=== PATIENT | female | born 1965 | race African-American/Black ===

== ENCOUNTER 2024-11-20 15:13 | Inpatient (IN) | payer OTHER ==
[~2024-11-20] VITALS: Ht 167.6 cm; Wt 80.6 kg
[2024-11-20 16:24] LABS: BASOPHILS % (AUTO) 0.6 % (0.0-2.0); EOSINOPHILS % (AUTO) 1.8 % (1.0-6.0); HEMATOCRIT 37.9 % (36-46); HEMOGLOBIN 12.4 g/dL (12.0-16.0); LYMPHOCYTES # (AUTO) 1.6 K/uL (1.0-4.8); LYMPHOCYTES % (AUTO) 28.3 % (22.0-44.0); MEAN CORPUSCULAR HEMOGLOBIN 27.9 pg (26.0-34.0); MEAN CORPUSCULAR HGB CONC 32.8 G/dL (31.0-37.0); MEAN CORPUSCULAR VOLUME 85 fL (80-100); MONOCYTES # (AUTO) 0.5 K/uL (0.1-1.0); MONOCYTES % (AUTO) 9.2 % (2.0-9.0); NEUTROPHILS # (AUTO) 3.4 K/uL (1.8-7.7); NEUTROPHILS % (AUTO) 60.1 % (40.0-70.0); PLATELET COUNT (AUTO) 252 K/uL (150-450); RED BLOOD CELL COUNT(AUTO) 4.44 MIL/uL (4.00-5.20); RED CELL DISTRIBUTION WIDTH 14.7 % (11.5-14.5); WHITE BLOOD COUNT (AUTO) 5.6 K/uL (4.5-11.0)
[2024-11-20 16:27] LABS: ANION GAP 6 mmol/L (8-16); CALCIUM, TOTAL 9.5 mg/dL (8.8-10.5); CARBON DIOXIDE 30 mmol/L (22-29); CHLORIDE 102 mmol/L (98-107); CREATININE 1.98 mg/dL (0.60-1.30); GLOMERULAR FILTR. RATE CALC 26 mL/min (>60); GLUCOSE,RANDOM 94 mg/dL (70-110); POTASSIUM 4.2 mmol/L (3.5-5.1); SODIUM SERUM 138 mmol/L (136-145); UREA NITROGEN, BLOOD 34 mg/dL (7-18)
[2024-11-20 16:33] LABS: ALBUMIN 3.3 g/dL (3.4-5.0); BILIRUBIN,DIRECT 0.1 mg/dL (0.00-0.20); BILIRUBIN,TOTAL 0.3 mg/dL (0.1-1.0); TOTAL PROTEIN, SERUM 7.7 g/dL (6.4-8.2)
[2024-11-20 16:37] LABS: CREATINE KINASE, TOTAL ONLY 145 U/L (26-192); TROPONIN I-HIGH SENSITIVITY 10 ng/L (<51)
[2024-11-20 16:41] LABS: B-TYPE NATRIURETIC PEPTIDE 53 pg/mL (0-100)
[2024-11-20] MEDS: LORazepam 2 MG/ML VIAL IM ONE (17:39)
[2024-11-20] MEDS ORDERED: MORPHINE SULFATE 2 MG/ML SYRINGE IVP PRN (20:15)
[2024-11-20] MEDS ORDERED: ONDANSETRON HCL 4 MG/2 ML VIAL IVP PRN (20:15)
[2024-11-20] MEDS ORDERED: BISACODYL 10 MG RECTAL RECTAL SUPPOSITORY PR PRN (20:15)
[2024-11-20] MEDS: DOCUSATE SODIUM 100 MG CAPSULE PO SCH (21:00)
[2024-11-20] MEDS: ATORVASTATIN CALCIUM 10 MG TABLET PO SCH (21:00)
[2024-11-20 21:31] VITALS: BP 136/88; PULSE 68; RESP 21; TEMP 97.9; O2SAT 99
[2024-11-21] VITALS (7 sets, daily range): BP systolic 138–165; BP diastolic 81–113; PULSE 61–103; RESP 18–19; TEMP 97.8–98.6; O2SAT 96–99
[2024-11-21] MEDS: HEPARIN SODIUM,PORCINE 5,000 UNITS/ML VIAL SQ SCH
[2024-11-21 04:20] LABS: APPEARANCE,URINE CLEAR (CLEAR); BILIRUBIN,URINE NEGATIVE (NEGATIVE); COLOR,URINE COLORLESS (YELLOW); GLUCOSE, URINE (UA) NEGATIVE (NEGATIVE); KETONES,URINE NEGATIVE (NEGATIVE); LEUKOCYTE ESTERASE ,URINE NEGATIVE (NEGATIVE); NITRATE,URINE NEGATIVE (NEGATIVE); OCCULT BLOOD,URINE NEGATIVE (NEGATIVE); PH,URINE 6.5 (5.0-8.0); PROTEIN,URINE NEGATIVE (NEGATIVE); UROBILINOGEN,URINE <=1.0 mg/dL (<=1.0)
[2024-11-21] MEDS: HYDROCODONE/ACETAMINOPHEN 5-325 MG TABLET PO PRN (04:52)
[2024-11-21] MEDS: PANTOPRAZOLE SODIUM 40 MG DR TABLET PO SCH (09:05)
[2024-11-21] MEDS: ASPIRIN 81 MG CHEWABLE TABLET PO SCH (09:06)
[2024-11-21] MEDS ORDERED: LORazepam 1 MG TABLET PO PRN (10:30)
[2024-11-21] MEDS: ACETAMINOPHEN 325 MG TABLET PO PRN (12:11)
[2024-11-21] MEDS ORDERED: LORazepam 2 MG/ML VIAL IVP PRN (12:45)
[2024-11-21] MEDS: SODIUM CHLORIDE 0.45% 1,000 ML IV ONE (12:54)
[2024-11-21] MEDS: LORazepam 2 MG/ML VIAL IM PRN (14:55)
[2024-11-21] MEDS ORDERED: LORazepam 2 MG/ML VIAL IM PRN (18:45)
[2024-11-21 19:50] LABS: PH,URINE DRUG SCREEN 6.5 (5.0-8.0)
[2024-11-21 20:05] LABS: ALCOHOL, URINE DRUG SCREEN NEGATIVE (NEGATIVE); AMPHET/METH SCREEN,URINE NEGATIVE (NEGATIVE); BARBITURATE SCREEN, URINE NEGATIVE (NEGATIVE); BENZODIAZEPINES SCREEN,URINE NEGATIVE (NEGATIVE); CANNABINOID SCREEN,URINE NEGATIVE (NEGATIVE); COCAINE SCREEN,URINE NEGATIVE (NEGATIVE); METHADONE SCREEN, URINE NEGATIVE (NEGATIVE); OPIATE SCREEN,URINE POSITIVE (NEGATIVE); PHENCYCLIDINE SCREEN,URINE NEGATIVE (NEGATIVE)
[2024-11-22] VITALS (7 sets, daily range): BP systolic 155–167; BP diastolic 83–112; PULSE 54–89; RESP 18–19; TEMP 97.3–98.5; O2SAT 96–100
[2024-11-22] MEDS ORDERED: AMLO5TAB66 PO (02:08)
[2024-11-22] MEDS ORDERED: EMPA10TA3 PO (02:08)
[2024-11-22] MEDS ORDERED: CARV6.2534 PO (02:08)
[2024-11-22] MEDS ORDERED: [UNRECOGNIZED DRUG - OTHER] PO (02:08)
[2024-11-22] MEDS ORDERED: PANT40TA54 PO (02:08)
[2024-11-22 06:59] LABS: EOSINOPHILS % (AUTO) 2.2 % (1.0-6.0); HEMATOCRIT 40.9 % (36-46); HEMOGLOBIN 13.4 g/dL (12.0-16.0); LYMPHOCYTES # (AUTO) 2.1 K/uL (1.0-4.8); LYMPHOCYTES % (AUTO) 32.8 % (22.0-44.0); MEAN CORPUSCULAR HEMOGLOBIN 27.8 pg (26.0-34.0); MEAN CORPUSCULAR HGB CONC 32.8 G/dL (31.0-37.0); MEAN CORPUSCULAR VOLUME 85 fL (80-100); MONOCYTES # (AUTO) 0.7 K/uL (0.1-1.0); MONOCYTES % (AUTO) 10.3 % (2.0-9.0); NEUTROPHILS # (AUTO) 3.5 K/uL (1.8-7.7); NEUTROPHILS % (AUTO) 53.7 % (40.0-70.0); PLATELET COUNT (AUTO) 243 K/uL (150-450); RED BLOOD CELL COUNT(AUTO) 4.83 MIL/uL (4.00-5.20); RED CELL DISTRIBUTION WIDTH 14.7 % (11.5-14.5); WHITE BLOOD COUNT (AUTO) 6.5 K/uL (4.5-11.0)
[2024-11-22 07:01] LABS: CALCIUM, TOTAL 9.8 mg/dL (8.8-10.5); CREATININE 1.79 mg/dL (0.60-1.30); POTASSIUM 4.6 mmol/L (3.5-5.1)
[2024-11-22] MEDS: DULoxetine HCL 20 MG CAPSULE PO SCH (08:16)
[2024-11-22] MEDS: AmLODIPine BESYLATE 5 MG TABLET PO SCH (12:35)
[2024-11-23] VITALS (7 sets, daily range): BP systolic 139–162; BP diastolic 68–102; PULSE 67–82; RESP 18–19; TEMP 97.5–98; O2SAT 95–100
[2024-11-23 06:16] LABS: BASOPHILS % (AUTO) 0.7 % (0.0-2.0); HEMATOCRIT 41.8 % (36-46); HEMOGLOBIN 13.7 g/dL (12.0-16.0); LYMPHOCYTES # (AUTO) 1.9 K/uL (1.0-4.8); LYMPHOCYTES % (AUTO) 29.1 % (22.0-44.0); MEAN CORPUSCULAR HEMOGLOBIN 27.8 pg (26.0-34.0); MEAN CORPUSCULAR HGB CONC 32.8 G/dL (31.0-37.0); MEAN CORPUSCULAR VOLUME 85 fL (80-100); MONOCYTES # (AUTO) 0.6 K/uL (0.1-1.0); MONOCYTES % (AUTO) 9.3 % (2.0-9.0); NEUTROPHILS # (AUTO) 3.9 K/uL (1.8-7.7); NEUTROPHILS % (AUTO) 58.9 % (40.0-70.0); PLATELET COUNT (AUTO) 251 K/uL (150-450); RED BLOOD CELL COUNT(AUTO) 4.92 MIL/uL (4.00-5.20); RED CELL DISTRIBUTION WIDTH 14.8 % (11.5-14.5); WHITE BLOOD COUNT (AUTO) 6.7 K/uL (4.5-11.0)
[2024-11-23 06:26] LABS: CALCIUM, TOTAL 9.9 mg/dL (8.8-10.5); CREATININE 2.01 mg/dL (0.60-1.30); POTASSIUM 4.8 mmol/L (3.5-5.1)
[2024-11-23] MEDS: AmLODIPine BESYLATE 5 MG TABLET PO SCH (08:07)
[2024-11-23 12:26] LABS: GLUCOMETER DEV NAME(LOC) 5N.1D; GLUCOSE,POINT OF CARE 102 MG/DL (70-110)
[2024-11-23] MEDS: SODIUM CHLORIDE 0.9% 1,000 ML IV ONE (12:45)
[2024-11-24 05:18] VITALS: BP 147/108; PULSE 77; RESP 18; TEMP 98; O2SAT 95
[2024-11-24 07:42] VITALS: BP 148/80; PULSE 76; RESP 18; TEMP 97.7; O2SAT 95
[2024-11-24 07:46] LABS: BASOPHILS % (AUTO) 0.6 % (0.0-2.0); EOSINOPHILS % (AUTO) 2.3 % (1.0-6.0); HEMATOCRIT 39.6 % (36-46); HEMOGLOBIN 12.9 g/dL (12.0-16.0); LYMPHOCYTES # (AUTO) 1.6 K/uL (1.0-4.8); MEAN CORPUSCULAR HEMOGLOBIN 27.6 pg (26.0-34.0); MEAN CORPUSCULAR HGB CONC 32.7 G/dL (31.0-37.0); MEAN CORPUSCULAR VOLUME 85 fL (80-100); MONOCYTES # (AUTO) 0.5 K/uL (0.1-1.0); MONOCYTES % (AUTO) 8.8 % (2.0-9.0); NEUTROPHILS # (AUTO) 3.2 K/uL (1.8-7.7); NEUTROPHILS % (AUTO) 58.3 % (40.0-70.0); PLATELET COUNT (AUTO) 246 K/uL (150-450); RED BLOOD CELL COUNT(AUTO) 4.68 MIL/uL (4.00-5.20); RED CELL DISTRIBUTION WIDTH 14.8 % (11.5-14.5); WHITE BLOOD COUNT (AUTO) 5.4 K/uL (4.5-11.0)
[2024-11-24 07:59] LABS: CALCIUM, TOTAL 9.7 mg/dL (8.8-10.5); CREATININE 2.06 mg/dL (0.60-1.30); POTASSIUM 4.5 mmol/L (3.5-5.1)
[2024-11-24] MEDS: AmLODIPine BESYLATE 10 MG TABLET PO SCH (08:41)
[2024-11-24 16:04] VITALS: BP 143/93; PULSE 79; RESP 18; TEMP 98.1; O2SAT 96
[2024-11-24] MEDS: SODIUM CHLORIDE 0.9% 1,000 ML IV ONE (16:20)
[2024-11-24 19:47] VITALS: BP 146/94; PULSE 87; RESP 20; TEMP 98.5; O2SAT 96
[2024-11-24] MEDS: HydrALAZINE HCL 10 MG TABLET PO SCH (20:33)
[2024-11-25] MEDS: ZOLPIDEM TARTRATE 5 MG TABLET PO PRN (02:54)
[2024-11-25 03:40] VITALS: BP 139/95; PULSE 85; RESP 18; TEMP 98.7; O2SAT 97
[2024-11-25 07:44] VITALS: BP 152/84; PULSE 68; RESP 18; TEMP 97.6; O2SAT 96
[2024-11-25 07:55] LABS: CALCIUM, TOTAL 9.3 mg/dL (8.8-10.5); CREATININE 2.1 mg/dL (0.60-1.30); POTASSIUM 4.5 mmol/L (3.5-5.1)
[2024-11-25 16:07] VITALS: BP 148/86; PULSE 79; RESP 18; TEMP 97.7; O2SAT 99
[2024-11-25 19:38] VITALS: BP 145/97; PULSE 84; RESP 18; TEMP 98.6; O2SAT 97
[2024-11-25 23:50] VITALS: BP 138/89; PULSE 80; RESP 18; TEMP 98; O2SAT 98
[2024-11-26 06:07] VITALS: BP 150/97; PULSE 80; RESP 20; TEMP 98.5; O2SAT 95
[2024-11-26 07:38] LABS: CALCIUM, TOTAL 9.9 mg/dL (8.8-10.5); CREATININE 2.13 mg/dL (0.60-1.30); POTASSIUM 4.5 mmol/L (3.5-5.1)
[2024-11-26 16:42] VITALS: BP 159/102; PULSE 75; RESP 18; TEMP 98.2; O2SAT 96
[2024-11-26 20:00] VITALS: BP 161/109; PULSE 95; RESP 20; TEMP 98.9; O2SAT 97
[2024-11-26] MEDS: HydrALAZINE HCL 25 MG TABLET PO SCH (21:00)
[2024-11-26 23:30] VITALS: BP 145/90; PULSE 145; RESP 20; TEMP 98.1; O2SAT 98
[2024-11-27 04:29] VITALS: BP 153/104; PULSE 74; RESP 20; TEMP 98.4; O2SAT 97
[2024-11-27 07:09] VITALS: BP 148/89; PULSE 84; RESP 20; TEMP 98.1; O2SAT 95
[2024-11-27 08:53] LABS: CALCIUM, TOTAL 10.2 mg/dL (8.8-10.5); CREATININE 2.07 mg/dL (0.60-1.30); POTASSIUM 4.4 mmol/L (3.5-5.1)
[2024-11-27 15:02] VITALS: BP 154/92; PULSE 89; RESP 18; TEMP 98.6; O2SAT 97
[2024-11-27 19:24] VITALS: BP 154/93; PULSE 78; RESP 20; TEMP 98.7; O2SAT 98
[2024-11-27 21:33] VITALS: BP 159/94; PULSE 80; RESP 18; O2SAT 98
[2024-11-28] VITALS (8 sets, daily range): BP systolic 133–168; BP diastolic 54–94; PULSE 71–86; RESP 18–20; TEMP 98.1–98.7; O2SAT 95–98
[2024-11-29 05:26] VITALS: BP 148/90; PULSE 76; RESP 18; TEMP 98.6; O2SAT 99
[2024-11-29 08:52] VITALS: BP 133/95; PULSE 105; RESP 20; TEMP 97.7; O2SAT 98
[2024-11-29 16:01] VITALS: BP 147/90; PULSE 70; RESP 20; TEMP 98; O2SAT 98
[2024-11-29 19:34] VITALS: BP 144/68; PULSE 78; RESP 19; TEMP 98.7; O2SAT 99
[2024-11-30 04:03] VITALS: BP 133/79; PULSE 85; RESP 18; TEMP 97.8; O2SAT 97
[2024-11-30 07:44] VITALS: BP 155/96; PULSE 82; RESP 18; TEMP 98.1; O2SAT 98
[2024-11-30] MEDS: MAGNESIUM HYDROXIDE SUSPENSION 30 ML UDCUP PO PRN (09:12)
[2024-11-30 12:21] LABS: CALCIUM, TOTAL 10.2 mg/dL (8.8-10.5); CREATININE 2.17 mg/dL (0.60-1.30); POTASSIUM 4.4 mmol/L (3.5-5.1)
[2024-11-30 16:05] VITALS: BP 156/89; PULSE 72; RESP 18; TEMP 97.6; O2SAT 98
[2024-11-30 19:40] VITALS: BP 155/99; PULSE 82; RESP 20; TEMP 98.1; O2SAT 98
[2024-12-01 04:23] VITALS: BP 158/89; PULSE 86; RESP 20; TEMP 98.2; O2SAT 98
[2024-12-01 08:54] VITALS: BP 142/75; PULSE 67; RESP 18; TEMP 97.7; O2SAT 97
[2024-12-01 15:47] VITALS: BP 135/79; PULSE 74; RESP 19; TEMP 98.6; O2SAT 98
[2024-12-01 19:49] VITALS: BP 148/90; PULSE 84; RESP 17; TEMP 97.7; O2SAT 97
[2024-12-01 20:45] VITALS: BP 137/87; PULSE 79; RESP 18; TEMP 98.8; O2SAT 99
[2024-12-02 05:09] VITALS: BP 158/106; PULSE 90; RESP 17; TEMP 98.2; O2SAT 99
[2024-12-02 07:42] VITALS: BP 154/75; PULSE 85; RESP 20; TEMP 98.3; O2SAT 97
[2024-12-02 08:06] VITALS: BP 146/97; PULSE 88; RESP 20; TEMP 97.7; O2SAT 98
== END 2024-12-02 14:44 | disposition home health service (06) | DRG 82 ==
LOC: EMS 15:20 → EDH 18:14 → 5S 20:38 → 6S 11-24 02:57
PROVIDERS: ADMIT Internal Medicine; ATTEND Internal Medicine
DX: E11.319 Type 2 diabetes mellitus with unspecified diabetic retinopathy without macular edema (principal); G93.41 Metabolic encephalopathy; N17.9 Acute kidney failure, unspecified; I69.354 Hemiplegia and hemiparesis following cerebral infarction affecting left non-dominant side; F17.210 Nicotine dependence, cigarettes, uncomplicated; Z53.20 Procedure and treatment not carried out because of patient's decision for unspecified reasons; I12.9 Hypertensive chronic kidney disease with stage 1 through stage 4 chronic kidney disease, or unspecified chronic kidney disease; R29.810 Facial weakness; E11.22 Type 2 diabetes mellitus with diabetic chronic kidney disease; N18.9 Chronic kidney disease, unspecified; F32.A Depression, unspecified; Z91.199 Patient's noncompliance with other medical treatment and regimen due to unspecified reason; Z79.899 Other long term (current) drug therapy
CPT/HCPCS: 70450; 71045; 80048; 80076; 80307; 81003; 82550; 82962; 83880; 84484; 85025; 85730; 93005; 96372; 97110; 97116; 97162; 97166; 97530; 99285; G0378; J1644; J2060; J7030; 36415-L1; 36415-TC